=== PATIENT | female | born 2005 | race Caucasian/White ===

== ENCOUNTER 2025-03-19 08:10 | Outpatient (CLI) | payer OTHER, SELFPAY ==
--- OUTSIDE RECORDS SUMMARY | 2025-03-19 08:17 | XMS_ITS | Clinical Summary ---
Author Organization [facility] [place] [address] Address [address] [place] [id number] Care Team Providers Care Geological Survey Field Assistant Name Role Phone Myla Lewis MD Primary Care Provider + Domingo Hernandez MD Unavailable [phone] Allergies Active Allergy Reactions Criticality Noted Date Comments Cat Dander Rhinitis,Sneezing Low 09/22/2024 Medications Lactobacillus acidophilus (PROBIOTIC ORAL)Indications :supplement Take 1 capsule by mouth every evening Active HYDROcodone-acet aminophen (HYCET) solution 7.5-325 mg/15 mLIndications:Pa in Take 15 mL by mouth every 6 (six) hours as needed for pain 600 mL 09/30/2024 Active Active Problems Patient Care Coordination No te Formatting of this note migh t be different from the original. tonsils Problem Noted Date Diagnosed Date Chronic tonsillitis 09/16/2024 Skin neoplasm 06/15/2013 Encounters Date Type Department Care Team Description 03/08/2025 Orders Only [facility] Pediatric Cardiology [facility] [address] [place] [address] [place] [id number] Adriane Lee Chest pain, unspecified type (Primary Dx) from Last 3 Months Surgical History Surgery Date Site/Laterality Comments NO PAST SURGERIES Family History Medical History Relation Name Comments Anesthesia problems Neg Hx Social History Tobacco Use Types Packs/Day Years Used Date Smoking Tobacco: Never Passive Smoke Exposure: Never Smokeless Tobacco: Never Tobacco Cessation:Counseling Given: Not Answered AUDIT-C Answer Date Recorded Q1: How often do you have a drink containing alcohol? Never 09/30/2024 Q2: How many drinks containi ng alcohol do you have on a typical day when you are drinking? Patient does not drink Q3: How often do you have si x or more drinks on one occasion? Never 09/30/2024 Personal Safety Answer Date Recorded Have you ever been in or are you currently in a harmful physical or emotional relationship or is someone making you feel afraid or unsafe? Denies 09/30/2024 Comments No Sex and Gender Information Value Date Recorded Sex Assigned at Not on file Legal Sex Female 10:33 AM GOLD CUTTER Gender Identity Not on file Sexual Orientation Not on file Obstetrics History Growth Chart Information Age Height Weight Avyqdx-cpi-upsh th Percentile BMI Percentile Head Circum Head Circum Percentile Date 19 years 172.7 cm (5' 8) 72.6 kg (160 lb) 75.45%* 2024 19 years 172.7 cm (5' 8) 73.9 kg (163 lb) 78.25%* 2024 * [facility] [place] (Girls, 2-20 Years) Last Filed Vital Signs Vital Sign Reading Time Taken Comments Blood Pressure 122/79 09/30/2024 8:50 AM GOLD CUTTER Pulse 67 09/30/2024 8:50 AM GOLD CUTTER Temperature 36.7 C (98.1 F) 09/30/2024 9:30 AM GOLD CUTTER Respiratory Rate 10 09/30/2024 8:50 AM GOLD CUTTER Oxygen Saturation 100% 09/30/2024 8:50 AM GOLD CUTTER Inhaled Oxygen Concentration - - Weight 72.6 kg (160 lb) 09/30/2024 6:42 AM GOLD CUTTER Height 172.7 cm (5' 8) 09/30/2024 6:42 AM GOLD CUTTER Body Mass Index 24.33 09/30/2024 6:42 AM GOLD CUTTER Plan of Treatment Health Maintenance Due Date Last Done Comments Depression Screening 2005 Hepatitis C Screening 2005 Regular Well Visit/Exam 18-64 2023 Meningococcal B Vaccine (2 o f 2 - Bexsero SCDM 2-dose series) 11/12/2023 05/14/2023 Covid-19 Vaccine (2023-2 5 season) 2024 08/21/2021, 02/02/2021, 01/12/2021 Influenza Vaccine (#1) 2025 , 06/07/2020, 07/10/2018, Additional history exists DTaP/Tdap/Td Vaccine (7 - Td or Tdap) 04/12/2026 04/12/2016, 05/29/2009, 11/18/2006, Additional history exists Hepatitis B Screening Completed 2005 , 2005, 2005, Additional history exists Pneumococcal vaccine <65 Completed 006, 2005, 2005, Additional history exists Varicella Vaccines Completed 05/29/2009, 08/21/2006 HPV Vaccines Completed 04/14/2017, 04/12/2016 Meningococcal Vaccine Completed 05/14/2023, 017 Insurance CHOICE PLUS CHOICE PLUS Care Teams Geological Survey Field Assistant Relationship Specialty Start Date End Date Myla Lewis MD [address] [place] [address] PCP - General Pediatrics 02/23/24 Domingo Hernandez MD [address] [place] [address] Referring Physician Otolaryngology 09/30/24
--- OUTSIDE RECORDS SUMMARY | 2025-03-19 08:17 | XMS_ITS | Referral Summary ---
Author Organization [facility] [place] [address] Address [address] [place] [id number] Care Team Providers Care Speaking Unit Assembler Name Role Phone Myla Lewis MD Primary Care Provider + Domingo Hernandez MD Unavailable [phone] Encounters Date Type Department Care Team Description 03/08/2025 Orders Only [facility] Pediatric Cardiology [facility] 2[address] [place] [address] [place] [address] Adriane Lee Chest pain, unspecified type (Primary Dx) from Last 3 Months Allergies Active Allergy Reactions Criticality Noted Date [...] Date Chronic tonsillitis 09/16/2024 Skin neoplasm 06/15/2013 Social History Tobacco Use Types Packs/Day Years [...] on file Legal Sex Female 10:33 AM PROGRAM DIRECTOR/MUSIC DIRECTOR Gender Identity Not on file Sexual Orientation Not on file Last Filed Vital Signs Vital Sign Reading Time Taken Comments Blood Pressure 122/79 09/30/2024 8:50 AM PROGRAM DIRECTOR/MUSIC DIRECTOR Pulse 67 09/30/2024 8:50 AM PROGRAM DIRECTOR/MUSIC DIRECTOR Temperature 36.7 C (98.1 F) 09/30/2024 9:30 AM PROGRAM DIRECTOR/MUSIC DIRECTOR Respiratory Rate 10 09/30/2024 8:50 AM PROGRAM DIRECTOR/MUSIC DIRECTOR Oxygen Saturation 100% 09/30/2024 8:50 AM PROGRAM DIRECTOR/MUSIC DIRECTOR Inhaled Oxygen Concentration - - Weight 72.6 kg (160 lb) 09/30/2024 6:42 AM PROGRAM DIRECTOR/MUSIC DIRECTOR Height 172.7 cm (5' 8) 09/30/2024 6:42 AM PROGRAM DIRECTOR/MUSIC DIRECTOR Body Mass Index 24.33 09/30/2024 6:42 AM PROGRAM DIRECTOR/MUSIC DIRECTOR Plan of Treatment Not on file Insurance [facility] CHOICE PLUS CHOICE PLUS Care Teams Speaking Unit Assembler Relationship Specialty Start Date End Date Myla Lewis MD [address] [place] [address] PCP - General Pediatrics 02/23/24 Domingo Hernandez MD [address] [place] [address] Referring Physician Otolaryngology 09/30/24
--- NOTE | 2025-03-19 08:30 | ECG_ITS ---
Test Date: 2025-03-19 08:39:41 Measurements Intervals [place] Rate: 63 P: 50 VA: 177 QRS: 72 QRSD: 94 T: 46 QT: 404 QTc: 414 Interpretive Statements SINUS RHYTHM WITH SINUS ARRHYTHMIA NORMAL ELECTROCARDIOGRAM No previous ECG available for comparison Electronically Signed On 03-19-2025 08:58:16 CDT by Leoncio Antony M.D.
== END 2025-03-19 08:11 | disposition home or self-care (01) ==
PROVIDERS: PCP Pediatrics; Visit Provider Pediatrics
DX: R00.0 Tachycardia, unspecified (principal)
CPT/HCPCS: 93005